=== PATIENT | male | born 1995 | race Caucasian/White ===

== ENCOUNTER 2019-03-31 16:30 | Emergency (ER) | payer OTHER ==
[2019-03-31 16:40] VITALS: BP 127/81
--- NOTE | 2019-03-31 16:43 | UC ---
Ear Complaint HPI - HPI Summary HPI Summary: 23 yo male presents with right ear pain. He tells me that over the last week he has had intermittent right ear pain and feeling that it is clogged and needs to pop. He also mentions that his wisdom teeth are coming in and feels this may be referred pain from that. He is feeling well otherwise and denies fever, sinus symptoms, sore throat, or cough. He says that he does get seasonal allergies, but has not been taking any allergy medications. - History of Current Complaint Chief Complaint: UCEar Stated Complaint: EAR PAIN Time Seen by Provider: 03/31/19 16:43 Hx Obtained From: Patient Onset/Duration: Gradual Onset Severity Initially: Moderate Severity Currently: Moderate Pain Intensity: 6 Pain Scale Used: 0-10 Numeric - Allergies/Home Medications Allergies/Adverse Reactions: Allergies Allergy/AdvReac Type Severity Reaction Status Date / Time No Known Allergies Allergy Unverified 03/31/19 16:40 PMH/Surg Hx/FS Hx/Imm Hx - Additional Past Medical History Additional PMH: Seasonal allergies - Surgical History Surgical History: None - Family History Known Family History: Positive: None - Social History Lives: With Family Alcohol Use: Rare Substance Use Type: None Smoking Status (MU): Never Smoked Tobacco - Immunization History Vaccination Up to Date: Yes Review of Systems All Other Systems Reviewed And Are Negative: Yes Constitutional: Positive: Negative Skin: Positive: Negative Eyes: Positive: Negative ENT: Positive: Ear Ache Respiratory: Positive: Negative Cardiovascular: Positive: Negative Gastrointestinal: Positive: Negative Neurological: Positive: Negative Psychological: Positive: Negative Physical Exam - Summary Physical Exam Summary: GENERAL: NAD. WDWN. No pain distress. SKIN: No rashes, sores, lesions, or open wounds. HEENT: Head: AT/NC Eyes: EOM intact. Conjunctiva clear without inflammation or discharge. Ears: Hearing grossly normal. TMs intact, no bulging, erythema, or edema. Slight clear fluid behind right and left TM. Nose: Nasal mucosa pink and moist. NTTP maxillary and frontal sinus. Throat: Posterior oropharynx without exudates, erythema, or tonsillar enlargement. Uvula midline. NECK: Supple. Nontender. No lymphadenopathy. CHEST: CTAB. No r/r/w. No accessory muscle use. Breathing comfortably and in no distress. CV: RRR. Without m/r/g. Pulses intact. Cap refill <2seconds NEURO: Alert. PSYCH: Age appropriate behavior. Triage Information Reviewed: Yes Vital Signs: Initial Vital Signs Temp 100.1 F 03/31/19 16:37 Pulse 83 03/31/19 16:37 Resp 18 03/31/19 16:37 BP 127/81 03/31/19 16:37 Pulse Ox 99 03/31/19 16:37 Vital Signs Reviewed: Yes Dental: Negative: Percussion Tenderness @, Gross Decay/Caries @, Dental Fracture @, Abscess @ Ear Complaint Course/Dx - Course Course Of Treatment: Suspect allergies/Eustachian tube dysfunction. Will start him with claritin and flonase for this and have him f/u with his dentist for his wisdom teeth. - Differential Dx/Diagnosis Provider Diagnosis: Seasonal allergies, Eustachian tube dysfunction Discharge - Sign-Out/Discharge Documenting (check all that apply): Patient Departure All imaging exams completed and their final reports reviewed: No Studies - Discharge Plan Condition: Stable Disposition: HOME Prescriptions: Fluticasone NASAL SPRAY 50MCG* [Flonase NASAL SPRAY 50MCG*] 2 spray BOTH NARES DAILY #1 btl Loratadine [Claritin] 5 mg PO DAILY #1 bottle Patient Education Materials: Allergies (ED) Referrals: Ren Gordillo MD [Primary Care Provider] - Additional Instructions: If you develop a fever, shortness of breath, chest pain, new or worsening symptoms - please call your PCP or go to the ED immediately. I suspect your ear discomfort is due to allergies, but if it is not relieved with the allergy medication prescribed - please see your dentist regarding your incoming wisdom teeth. - Billing Disposition and Condition Condition: STABLE Disposition: Home
== END 2019-03-31 16:55 | disposition home or self-care (01) ==
LOC: UCEAST 16:30
DX: J30.2 Other seasonal allergic rhinitis (principal); H69.91 Unspecified Eustachian tube disorder, right ear
CPT/HCPCS: 99202; G0463

== ENCOUNTER 2020-02-03 17:33 | Emergency (ER) | payer OTHER ==
[2020-02-03 20:12] LABS: Influenza A Molecular Negative (Negative); Influenza B Molecular Negative (Negative)
--- NOTE | 2020-02-03 20:30 | UC ---
FLU HPI - HPI Summary HPI Summary: 24-year-old male presents with 3-4 day history of a nonproductive cough. States approximately one month ago he had some cold symptoms with cough that lingered for a couple of weeks but did eventually resolve. Denies fever, chills , nasal congestion, runny nose, sore throat, chest pain, shortness of breath, abdominal pain, nausea, or vomiting. - History of Current Complaint Chief Complaint: UCGeneralIllness Stated Complaint: COUGH Time Seen by Provider: 02/03/20 20:10 Hx Obtained From: Patient Pain Intensity: 0 - Allergy/Home Medications Allergies/Adverse Reactions: Allergies Allergy/AdvReac Type Severity Reaction Status Date / Time No Known Allergies Allergy Unverified 02/03/20 18:03 Home Medications: Home Medications Fluticasone Propionate (Nasal) [Flonase] 1 spray NASAL DAILY #1 bot 06/08/14 [ Clinic Confirmed 02/03/20] Fluticasone NASAL SPRAY 50MCG* [Flonase NASAL SPRAY 50MCG*] 2 spray BOTH NARES DAILY #1 btl 03/31/19 [Rx Confirmed 02/03/20] Loratadine [Claritin] 5 mg PO DAILY #1 bottle 03/31/19 [Rx Confirmed 02/03/20] Azithromycin 200/5 SUSP(NF) [Zithromax 200 mg/5 ml SUSP(NF)] 500 mg PO .NOW, THEN 250MG GABINO #1 btl 02/03/20 [Rx] PMH/Surg Hx/FS Hx/Imm Hx Previously Healthy: Yes - Denies significant PMH - Surgical History Surgical History: None - Family History Family History: Denies significant FMH - Social History Occupation: Employed Full-time Lives: With Family Alcohol Use: Rare Substance Use Type: None Smoking Status (MU): Never Smoked Tobacco - Immunization History Vaccination Up to Date: Yes Review of Systems All Other Systems Reviewed And Are Negative: Yes Constitutional: Negative: Fever, Chills ENT: Negative: Sore Throat, Ear Ache, Nasal Discharge, Sinus Congestion, Sinus Pain/Tenderness Respiratory: Positive: Cough. Negative: Shortness Of Breath Cardiovascular: Negative: Chest Pain Gastrointestinal: Negative: Abdominal Pain, Vomiting, Nausea Genitourinary: Positive: Negative Musculoskeletal: Positive: Negative Neurological/Mental Status: Positive: Negative Is Patient Immunocompromised?: No Physical Exam - Summary Physical Exam Summary: GENERAL APPEARANCE: Well developed, well nourished, alert and cooperative, and appears to be in no acute distress. EYES: Conjunctiva clear. No drainage. EARS: External auditory canals and tympanic membranes clear, hearing grossly intact. NOSE: No nasal discharge. THROAT: Pharynx normal No tonsilar inflammation, swelling, exudate, or lesions. Uvula midline. NECK: Neck supple, non-tender without lymphadenopathy. CARDIAC: Normal S1 and S2. No S3, S4 or murmurs. Rhythm is regular. There is no peripheral edema, cyanosis or pallor. Extremities are warm and well perfused. Capillary refill is less than 2 seconds. Peripheral pulses intact. LUNGS: Clear to auscultation without rales, rhonchi, wheezing or diminished breath sounds. Dry nonproductive cough. ABDOMEN: Positive bowel sounds. Soft, nondistended, nontender. No guarding or rebound. No masses or hepatosplenomegally. MUSKULOSKELETAL: ROM intact to all extremities. No joint erythema or tenderness. Normal muscular development. Normal gait. SKIN: Skin normal color, texture and turgor with no lesions or eruptions. Triage Information Reviewed: Yes Vital Signs: Initial Vital Signs Temp 100.1 F 02/03/20 17:58 Pulse 100 02/03/20 17:58 Resp 16 02/03/20 17:58 BP 130/77 02/03/20 17:58 Pulse Ox 100 02/03/20 17:58 Vital Signs Reviewed: Yes Flu Course/Dx - Course Course Of Treatment: 24-year-old male presents with 3-4 day history of a nonproductive cough. States approximately one month ago he had some cold symptoms with cough that lingered for a couple of weeks but did eventually resolve. Denies fever, chills , nasal congestion, runny nose, sore throat, chest pain, shortness of breath, abdominal pain, nausea, or vomiting. Patient had a mildly elevated temperature of 100.1 F otherwise vital signs stable. Patient had no nasal congestion, normal TMs, normal pharynx without tonsillar swelling or exudate, clear bilateral breath sounds, dry nonproductive cough, and otherwise unremarkable exam. Discussed with the patient that I suspect he has an acute bronchitis likely a viral origin however with the mildly elevated temperature I cannot exclude the possibility of bacterial infection. Discussed with the patient the risks and benefits of treating with an antibiotic and he is electing to start at this time. We'll start him on a course of azithromycin as well as recommend symptomatic treatment. He is to return here or follow-up with primary care in 5 -7 days if symptoms are not improving. Anticipatory guidance and warning symptoms are reviewed with the patient. Verbalizes understanding and agrees with plan of care. - Differential Dx/Diagnosis Differential Diagnosis/HQI/PQRI: Bronchitis, Influenza, Pneumonia, Upper Respiratory Infection Provider Diagnosis: Acute bronchitis Discharge ED - Sign-Out/Discharge Documenting (check all that apply): Patient Departure All imaging exams completed and their final reports reviewed: No Studies - Discharge Plan Condition: Stable Disposition: HOME Prescriptions: Azithromycin 200/5 SUSP(NF) [Zithromax 200 mg/5 ml SUSP(NF)] 500 mg PO .NOW, THEN 250MG GABINO #1 btl Patient Education Materials: Acute Bronchitis (ED) Referrals: No Primary Care Phys,NOPCP [Primary Care Provider] - [facility] [Outside] Additional Instructions: Your history and exam are consistent with acute bronchitis which is most often caused by a viral infection however you have elected to treat with an antibiotic at this time. Take azithomycin 500 mg today then 250 mg a day for the next 4 days. Be aware that the cough with bronchitis may persist for 2-3 weeks even after treatment. Get plenty of rest. Drink plenty of fluids. Run a cool mist humidifer in your room at night. Take over the counter acetaminophen (Tylenol) or ibuprofen (Advil, Motrin) according to directions as needed for pain or fever. Take Robitussin DM according to directions as needed for cough. Return here or follow up with primary care in 5-7 days if symptoms do not improve. I have provided you with the contact information for the [facility] physician referral service if you need assistance with establishing with a provider. Seek immediate medical attention in the emergency room if you have fever greater than 100.5 F despite taking acetaminophen or ibuprofen, have chest pain , difficulty breathing, or have any worsening of symptoms. - Billing Disposition and Condition Condition: STABLE Disposition: Home
[2020-02-03 20:56] VITALS: BP 130/75
== END 2020-02-03 20:40 | disposition home or self-care (01) ==
LOC: UCEAST 17:33
DX: J20.9 Acute bronchitis, unspecified (principal); Z79.51 Long term (current) use of inhaled steroids
CPT/HCPCS: 99212; G0463